=== PATIENT | male | born 1965 | race Caucasian/White ===

== ENCOUNTER 2017-04-25 07:03 | Day surgery (SDC) | payer OTHER ==
[2017-04-21 15:06] VITALS: BMI 27.1
[~2017-04-25 07:03] MED LIST: LACTATED RINGERS 1,000 ML IV SCH
[2017-04-25 07:20] VITALS: TEMP 98.2
[2017-04-25] MEDS ORDERED: LIDOCAINE 1% INJ 10MG/ML (20 ML MDV) ONE (07:40)
[2017-04-25] MEDS ORDERED: PROPOFOL 10 MG/ML 20 ML VIAL IV ONE (07:40)
--- NOTE | 2017-04-25 08:19 | P.GSHP ---
History of Present Illness H&P Date: 04/25/17 Chief Complaint: Screening colonoscopy Asst. 51-year-old male presents today for screening colonoscopy. Patient denies a significant GI complaints. Past Medical History Past Medical History: COPD, Hypertension Additional Past Medical History / Comment(s): CHRONIC BACK PAIN, SPINAL STENOSIS. History of Any Multi-Drug Resistant Organisms: None Reported Past Surgical History: Appendectomy, Back Surgery Additional Past Surgical History / Comment(s): LAMINECTOMY Past Anesthesia/Blood Transfusion Reactions: No Reported Reaction Smoking Status: Current every day smoker - Past Family History Sister(s) Family Medical History: Cancer Medications and Allergies Home Medications Medication Instructions Recorded Confirmed Type Budesonide-Formot 160-4.5 Mcg 2 puff INHALATION RT-BID 04/07/15 04/25/17 History [Symbicort 160-4.5 Mcg Inhaler] Diltiazem Cd [Cardizem Cd] 240 mg PO DAILY 04/07/15 04/25/17 History OLANZapine [ZyPREXA] 15 mg PO HS 04/07/15 04/25/17 History Spironolactone [Aldactone] 25 mg PO DAILY 04/07/15 04/25/17 History Albuterol Inhaler [Ventolin Hfa 1 - 2 puff INHALATION RT-Q6H PRN 03/08/16 History Inhaler] Albuterol Nebulized [Ventolin 2.5 mg INHALATION RT-Q4H PRN 03/08/16 04/25/17 History Nebulized] Ascorbic Acid [Vitamin C] 500 mg PO DAILY 03/08/16 04/25/17 History Calcium/Magnesium/Zinc 1 tab PO DAILY 03/08/16 04/25/17 History [Skkyxyf-Tfyquqlxd-Ajvw Tablet] Famotidine [Pepcid] 20 mg PO DAILY 03/08/16 04/25/17 History Lisinopril [Lisinopril] 5 mg PO DAILY 03/08/16 04/25/17 History Cymbalta 40 mg PO DAILY 04/21/17 04/25/17 History buPROPion SR [Wellbutrin Sr] 150 mg PO BID 04/21/17 04/25/17 History oxyCODONE-APAP 5-325MG [Percocet 1 tab PO BID 04/21/17 04/25/17 History 5-325 mg] Allergies Allergy/AdvReac Type Severity Reaction Status Date / Time codeine Allergy SEVERE Verified 04/21/17 14:53 ABDOMINAL PAIN doxycycline AdvReac Vomiting Verified 04/21/17 14:53 Surgical - Exam Vital Signs Temp Pulse Resp BP Pulse Ox 98.2 F 91 14 140/81 98 04/25/17 07:19 04/25/17 07:19 04/25/17 07:19 04/25/17 07:19 04/25/17 07:19 - General well developed, no distress - Eyes PERRL - ENT normal pinna - Neck no masses - Respiratory normal expansion - Cardiovascular Rhythm: regular - Abdomen Abdomen: soft, non tender Assessment and Plan Assessment: We'll perform screening colonoscopy.
--- NOTE | 2017-04-25 08:31 | P.OP ---
Date of Procedure: 04/25/17 Preoperative Diagnosis: Screening colonoscopy Postoperative Diagnosis: Normal colon Procedure(s) Performed: Colonoscopy Anesthesia: MAC Surgeon: Freddy Ge Pathology: none sent Condition: stable Disposition: PACU Description of Procedure: PROCEDURE: The patient was placed on the endoscopy table in the lateral position. Digital rectal examination was performed which revealed no abnormalities. The prostate was symmetrical without nodules. Flexible colonoscope was then placed in the patient's anus and passed throughout the entire colon. The ileocecal valve was visualized. The cecum, ascending, transverse, descending and sigmoid colon were normal. The rectum was normal as well. There were no masses, polyps or diverticula noted in the entire colon. SUMMARY OF FINDINGS: Normal colonoscopy.
[2017-04-25 08:51] VITALS: BP 121/78; PULSE 90; RESP 16
== END 2017-04-25 09:05 | disposition home or self-care (01) ==
LOC: ORWHC2ENDO 07:03
PROVIDERS: ATTEND Surgery
DX: Z12.11 Encounter for screening for malignant neoplasm of colon (principal); J44.9 Chronic obstructive pulmonary disease, unspecified; I10 Essential (primary) hypertension; M54.9 Dorsalgia, unspecified; G89.29 Other chronic pain; M48.00 Spinal stenosis, site unspecified; K21.9 Gastro-esophageal reflux disease without esophagitis; Z79.891 Long term (current) use of opiate analgesic; Z79.51 Long term (current) use of inhaled steroids; Z79.899 Other long term (current) drug therapy; Z88.5 Allergy status to narcotic agent; F17.210 Nicotine dependence, cigarettes, uncomplicated
CPT/HCPCS: J2001; J2704; G0121; 45378